=== PATIENT | female | born 1965 | race Caucasian/White ===

== ENCOUNTER 2024-10-02 06:22 | Day surgery (SDC) | payer BC, SELFPAY ==
[2024-10-02] VITALS (18 sets, daily range): BP systolic 103–146; BP diastolic 59–86; PULSE 50–82; RESP 12–20; TEMP 36–36.8; O2SAT 95–100; BMI 19.5
[2024-10-02] MEDS: LACTATED RINGERS 1000 ML 1,000 ML 100 ML IV ×2 (07:05→10:00)
[2024-10-02] MEDS: CELECOXIB 200 MG CAPSULE PO (07:05)
[2024-10-02] MEDS: OXYCODONE (CR) 10 MG TAB.ER.12H PO (07:05)
[2024-10-02] MEDS: ACETAMINOPHEN 500 MG TABLET 1000 MG PO (07:05)
[2024-10-02] MEDS: MIDAZOLAM HCL 1 MG/ML inj IVP (07:27)
--- NOTE | 2024-10-02 07:30 | CRLHL7_ITS ---
For Patients: As a result of the Cures Act, medical imaging exams and procedure reports are released immediately into your electronic medical record. You may view this report before your referring provider. If you have questions, please contact your health care provider. Indication: Hip replacement surgery Technique: AP hip fluoroscopic images. Fluoroscopy time 1 minute 51 seconds Findings/Impression: Hardware from a left total hip arthroplasty is in satisfactory position. Dictated by Vito Araujo MD @ 10/02/2024 12:18:16 PM (Electronically Signed)
--- NOTE | 2024-10-02 07:37 | SUR.PREOP ---
TIME?OUT:?724, left hip replacement PT/RN/MDA?VERIFICATION?OF?SURGICAL?SITE,?PROCEDURE,?AND?CONSENT OBTAINED?PRIOR?TO?INVASIVE?PROCEDURE.
[2024-10-02] MEDS: TRANEXAMIC ACID 100 MG/ML INJ 1000 MG IV (08:35)
--- NOTE | 2024-10-02 09:02 | P.ANES_ITS ---
Anesthesia Charges Start Date/Time Anesthesia Start Date: 10/02/24 Anesthesia Start Time: 08:04 Stop Date/Time Anesthesia Stop Date: 10/02/24 Anesthesia Stop Time: 10:35 Coding CPT Codes CPT Codes: ANESTH HIP ARTHROPLASTY - 20154 ([id number]) P1 - NORMAL HEALTHY PATIENT, QK - PAINTING SUPERVISOR 2-4 CNCRNT NIMO PROC, QX - SALES PLANNING ANALYST SVMairia W/ MED DIRECTION
--- NOTE | 2024-10-02 09:02 | W.ANESCHARGE ---
Anesthesia Charges Start Date/Time Anesthesia Start Date: 10/02/24 Anesthesia Start Time: 08:04 Stop Date/Time Anesthesia Stop Date: 10/02/24 Anesthesia Stop Time: 10:35 Coding CPT Codes CPT Codes: ANESTH HIP ARTHROPLASTY - 13147 ([id number]) P1 - NORMAL HEALTHY PATIENT, QK - TEST ENGINEER 2-4 CNCRNT NIMO PROC, QX - HELMET HAT PUNCHER SVMariia W/ MED DIRECTION
--- NOTE | 2024-10-02 09:03 | W.PM.NB ---
Nerve Block Nerve Block Time Seen by Provider: 07:30 Date Seen: 10/02/24 Type of block requested by surgeon for post-operative analgesia: NERY/LFCN Side: left Time out performed: Yes Verification of patient name: Yes Verification of date of : Yes Site marking: site marked Name of person performing procedure: Noe Continuous monitoring Was continuous monitoring of O2 sat, B/P, monitoring analyst, recorded every 15 minutes?: Yes Procedure Checklist: sterile prep, needles and gloves Ultrasound guided. Images saved: Yes Medications given in 5ml increments after negative aspiration: Ropivicaine %: 0.5 mL: 30 Needle gauge: 20 Precedex (mcg): 25 Patient tolerated procedure well: Yes Additional comments: Needle noted below psoas tendon needle noted adjacent to LFCN Block Charges Block Charge (with Pro Fee): Other Periph Nerve Block Use of Ultrasound Machine for Block: Yes- US Guidance/pain block
--- NOTE | 2024-10-02 09:54 | CRLHL7_ITS ---
For Patients: As a result of the Cures Act, medical imaging exams and procedure reports are released immediately into your electronic medical record. You may view this report before your referring provider. If you have questions, please contact your health care provider. Indication: Postop SCOTT Technique: AP pelvis and lateral view left hip Findings/Impression: Hardware from a left total hip arthroplasty is in satisfactory position. Bone alignment is normal. No sign of acute fracture. Postop changes are within normal limits. Dictated by Vito Araujo MD @ 10/02/2024 12:22:41 PM (Electronically Signed)
--- NOTE | 2024-10-02 09:56 | P.ORPRC_ITS ---
Procedure Note Date of procedure: 10/02/24 Procedure: PREOPERATIVE DIAGNOSIS: Left hip osteoarthritis POSTOPERATIVE DIAGNOSIS: Left hip osteoarthritis NAME OF OPERATION: Left total hip arthroplasty SURGEON: Arsenio Santana MD RELIGIOUS EDUCATION COORDINATOR: Daphne Casas PA-C, KARLA Ashraf IMPLANTS: 1. [employer] [place] # 50 sector ingrowth cup 2. 32 x 50 +4 neutral polyethylene 3. Actis #4 standard collared ingrowth stem 4. 32 +1 ceramic femoral head ANESTHESIA: Spinal ESTIMATED BLOOD LOSS: 340 cc COMPLICATIONS: None SPECIMENS: None DRAINS: None PREOPERATIVE ANTIBIOTICS: Ancef 1 g INDICATIONS: The patient is a 59-year-old with a longstanding history of severe, unrelenting left hip pain secondary to end-stage left hip osteoarthritis. Despite appropriate nonoperative management, including activity modification, use of an assist device, anti-inflammatories, [id number]-gih-busckux pain medication, physical therapy and injections, they continue to have pain and disability. Operative intervention was offered. The risks, benefits and expected outcomes were discussed in detail. These included but were not limited to: Infection, bleeding, injury to blood vessel or nerve, venous thromboembolism. All questions were answered to their satisfaction. Use of an faculty research assistant was necessary throughout the case for patient positioning and safety, soft tissue retraction and closure. PROCEDURE: The patient was placed supine on the [place] table. General anesthesia was administered. The faculty research assistant made sure the patient was properly positioned. The left hip was prepped and draped in the usual sterile fashion. The image intensifier was brought in for a perfect AP pelvis and a perfect double tear drop AP view of each hip which were used for intraoperative templating with our fluoroscopic guide. An oblique incision was made 3 cm distal and 3 cm lateral to the anterior superior iliac spine. The faculty research assistant retracted the soft tissues to protect them. Subcutaneous dissection was taken with electrocautery to the superficial fascia. The fascia was divided in line with the incision. Blunt dissection was carried medially to the tensor fascia mat and sartorius interval. Deep dissection was carried with electrocautery. The circumflex vessels were cauterized and divided. The capsule was exposed and then divided in a T- fashion, tagged with #1 FiberWire sutures. Retractors were placed in the joint, held by the faculty research assistant. The corkscrew was placed in the femoral head. The neck cut was made in the subcapital region. We made a second neck cut more distal. The napkin ring of bone was removed. The femoral head was removed intact. Acetabular retractors were placed, held by the faculty research assistant. The labrum was sharply debrided. The capsule was released. The 43 mm reamer was used to the true medial wall. We then enlarged in 2 mm increments using the image intensifier for our reamer placement. We impacted the cup which had excellent purchase. We placed the polyethylene. Attention was then turned to the proximal femur. The limb was placed in 140 de grees of external rotation, maximum extension and adduction. A significant amount of time was spent releasing the capsule to allow us to deliver the femur into the wound and complete the femoral side safely. Retractors were held by the faculty research assistant throughout the femoral preparation. The steam box tender and canal finder were used. Broaches were used to a stable size. The calcar reamer was used. Trial components were placed. The hip was reduced and was found to be stable with appropriate soft tissue tension. Length and offset had been nicely restored using the image intensifier and our fluoroscopic guide. Trial components were removed. The stem was impacted. We placed the femoral head. Again, the hip was reduced and was found to be stable with appropriate soft tissue tension. Length and offset had been nicely restored. The faculty research assistant did a three minute dilute Betadine solution soak. The faculty research assistant irrigated the wound with 3 liters of normal saline via pulse lavage. The faculty research assistant repaired the anterior capsule with a #1 Vicryl and our previously placed Ethibond sutures. The faculty research assistant closed the fascia over the tensor fascia mat with a #1 PDO Stratafix, subcutaneous tissues with 2-0 Vicryl, skin with a running 3-0 Stratafix and glue. A dry dressing was applied by the faculty research assistant. Sponge and needle counts were correct x 2. The patient tolerated the procedure well; there were no apparent complications. They were awakened and extubated in the operating room, sent to the Post-Anesthesia Care Unit in satisfactory condition. PLAN: 1. The patient will be mobilized with physical therapy, weight-bearing as tolerates 2. Xarelto x 5 days then aspirin x 30 days will be used for DVT prophylaxis 3. The patient will be discharged once medically appropriate
--- NOTE | 2024-10-02 10:38 | P.ANES_ITS ---
Anesthesia Charges Start Date/Time Anesthesia Start Date: 10/02/24 Anesthesia Start Time: 08:04 Stop Date/Time Anesthesia Stop Date: 10/02/24 Anesthesia Stop Time: 10:35 Coding CPT Codes CPT Codes: ANESTH HIP ARTHROPLASTY - 11364 ([id number]) P1 - NORMAL HEALTHY PATIENT, QK - RECORD PRESS SUPERVISOR 2-4 CNCRNT NIMO PROC, QX - UTILITY MANAGER SVMariia W/ MED DIRECTION
--- NOTE | 2024-10-02 10:38 | W.ANESCHARGE ---
Anesthesia Charges Start Date/Time Anesthesia Start Date: 10/02/24 Anesthesia Start Time: 08:04 Stop Date/Time Anesthesia Stop Date: 10/02/24 Anesthesia Stop Time: 10:35 Coding CPT Codes CPT Codes: ANESTH HIP ARTHROPLASTY - 65779 ([id number]) P1 - NORMAL HEALTHY PATIENT, QK - REPAIR ELECTRIC MOTOR ASSEMBLER 2-4 CNCRNT NIMO PROC, QX - COLD MILL INSPECTOR SVMariia W/ MED DIRECTION
--- NOTE | 2024-10-02 12:29 | SUR.PHASEII ---
noted pt very relaxed, sleeping heavy, sats dip to mid 80's. able to bring it back with deep breathing. lungs clear front and back. applied o2, allow nap
== END 2024-10-02 14:52 | disposition home or self-care (01) ==
PROVIDERS: PCP Physician Assistant Medical; Visit Provider Orthopaedic Surgery
PROC: (CPT 27130; principal; 2024-10-02 07:30)
DX: M16.12 Unilateral primary osteoarthritis, left hip (principal); G89.18 Other acute postprocedural pain
CPT/HCPCS: 27130; 01214; 36415; 64450; 73501; 76000; 76942; 86850; 86900; 86901; 97110; 97116; 97161; 97165; A9270; C1776; J0690; J1100; J2250; J2405; J2704; J3010; J7120